=== PATIENT | female | born 1985 | race Caucasian/White ===

== ENCOUNTER 2023-10-03 14:37 | Emergency (ER) | payer OTHER ==
[~2023-10-03] VITALS: Ht 157.4 cm; Wt 54.4 kg
[2023-10-03] MEDS ORDERED: GABAPENTIN800 MG PO (14:49)
[2023-10-03] MEDS ORDERED: ANTIBIOTIC-CORT10 ML OT (14:49)
[2023-10-03] MEDS ORDERED: VRAYLAR1.5 MG PO (14:49)
[2023-10-03] MEDS ORDERED: BUPRENORPHINE-1 EAC1 SL (14:49)
[2023-10-03] MEDS ORDERED: DULOXETINE HCL60 MG PO (14:49)
[2023-10-03] MEDS ORDERED: LEVOFLOXACIN 750 MG TAB PO ONE (15:00)
[2023-10-03] MEDS ORDERED: Ondansetron4 MG PO (15:02)
[2023-10-03] MEDS ORDERED: CIPROFLOXACIN HC5 ML OT (15:02)
[2023-10-03] MEDS ORDERED: LEVOFLOXACIN750 M2 PO (15:02)
[2023-10-03] MEDS ORDERED: Ondansetron Hydrochloride 4 MG TAB PO ONE (15:10)
== END 2023-10-03 15:10 | disposition home or self-care (01) ==
LOC: ED 14:37
DX: H66.92 Otitis media, unspecified, left ear (principal); H60.92 Unspecified otitis externa, left ear; F17.200 Nicotine dependence, unspecified, uncomplicated; Z88.1 Allergy status to other antibiotic agents; Z88.2 Allergy status to sulfonamides; Z88.8 Allergy status to other drugs, medicaments and biological substances

== ENCOUNTER 2024-12-23 14:06 | Emergency (ER) | payer OTHER ==
[~2024-12-23] VITALS: Ht 157.4 cm; Wt 62.6 kg
[~2024-12-23 14:06] MED LIST: ANTIBIOTIC-CORT10 ML OT; BUPRENORPHINE-1 EAC1 SL; CIPROFLOXACIN HC5 ML OT; DULOXETINE HCL60 MG PO; GABAPENTIN800 MG PO; LEVOFLOXACIN750 M2 PO; Ondansetron4 MG PO; VRAYLAR1.5 MG PO
[2024-12-23] MEDS ORDERED: OMNICEF300 MG PO (14:47)
[2024-12-23] MEDS ORDERED: OFLOXACIN 10 ML10 M2 OT (14:47)
[2024-12-23] MEDS ORDERED: CEFDINIR 300 MG CAP PO ONE (14:50)
[2024-12-23] MEDS ORDERED: OFLOXACIN 0.3% 5 ML BOTTLE OT ONE (14:50)
== END 2024-12-23 15:07 | disposition home or self-care (01) ==
LOC: ED 14:06
DX: H66.91 Otitis media, unspecified, right ear (principal); H60.91 Unspecified otitis externa, right ear; Z88.1 Allergy status to other antibiotic agents; Z88.8 Allergy status to other drugs, medicaments and biological substances